=== PATIENT | male | born 1970 | race Caucasian/White ===

== ENCOUNTER 2022-10-05 10:42 | Emergency (ER) | payer BC, SELFPAY ==
[2022-10-05] VITALS (12 sets, daily range): BP systolic 131–151; BP diastolic 78–91; PULSE 65–75; RESP 16; TEMP 36.3–36.7; O2SAT 97–99; BMI 34.0
--- NOTE | 2022-10-05 10:42 | ECG_ITS ---
APPROVED REPORT Exam: Resting ECG HR:71 bpm ECG Measurements Heart Rate 71 AXES OK 160 P 57 QRSd 92 QRS 4 QT 358 T -3 QTc 381 Conclusion SINUS RHYTHM Isolated Q in III O/w NORMAL ECG UNCONFIRMED REPORT Electronically signed by : David Cormier MD 10/05/2022 17:34:06
--- NOTE | 2022-10-05 10:52 | XR_ITS ---
FINAL REPORT CLINICAL HISTORY: CHEST PAIN FINDINGS: SINGLE-VIEW CHEST The heart size is normal. The mediastinum is normal. The lungs are clear. There is no pneumothorax. IMPRESSION: No acute cardiopulmonary process. Reviewed, Interpreted and Dictated by Andres Ac MD Transcribed by Angelina Winn Authenticated and [facility]
--- NOTE | 2022-10-05 11:01 | HMH.EDGENADL ---
Discharge Plan Disposition Patient Disposition: Home, Self-Care Prescriptions Prescriptions: No Action pantoprazole 40 mg tablet,delayed release (DR/EC) 40 mg PO POSTTR isosorbide mononitrate 30 mg tablet extended release 24 hr 30 mg PO DAILY spironolactone 25 mg tablet 25 mg PO HS gemfibrozil 600 mg tablet 600 mg PO BID labetalol 300 mg tablet 300 mg PO BID Label Comments: TAKE 1 TABLET BY MOUTH TWICE DAILY. lisinopril 40 mg tablet 40 mg PO DAILY aspirin 81 mg Capsule 81 mg PO DAILY Referrals Follow up/Referrals: Provider,Referral, MD [Primary Care Provider] - See instructions Activity Restrictions/Add. Instructions Additional Instructions/Restrictions: Please follow-up outpatient with cardiology as instructed and return to the emergency department any worsening symptoms. 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 Roosevelt [facility]iz[facility] presenting today with chest pain. This started less than an hour prior to arrival lasted for about 20 minutes was substernal chest pressure with some diaphoresis radiating to his left shoulder spontaneously resolved. He had 81 mg of aspirin prior to arrival was given 3 additional 81 mg tablets of aspirin prior to my assessment. He is currently asymptomatic. 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 He states 5 years ago he had his most recent cath and coronary CTA at which point he was told he had microvascular disease. He has not had a heart cath or stress test since that time. No fevers chills or other associated symptoms today. Related Data Home Medications Medication Instructions Recorded Confirmed aspirin 81 mg capsule 81 mg PO DAILY . 10/05/22 10/05/22 gemfibrozil 600 mg tablet 600 mg PO BID . 10/05/22 10/05/22 isosorbide mononitrate 30 mg 30 mg PO DAILY . 10/05/22 10/05/22 tablet,extended release 24 hr labetalol 300 mg tablet 300 mg PO BID . 10/05/22 10/05/22 lisinopril 40 mg tablet 40 mg PO DAILY . 10/05/22 10/05/22 pantoprazole 40 mg tablet,delayed 40 mg PO POSTTR Acid reflux 10/05/22 10/05/22 release spironolactone 25 mg tablet 25 mg PO HS . 10/05/22 10/05/22 Allergies Allergy/AdvReac Type Severity Reaction Status Date / Time azathioprine [From Imuran] Allergy Verified 10/05/22 10:52 [facility] Disclaimer: The information contained in this section may have been updated after the patient was seen, as this information can be updated by other users. Social History Smoking Status: Never smoker alcohol intake: never current occupational status: other Travel in the last 8 weeks: None ROS Obtained: Yes All systems reviewed & no additional complaints except as documented Physical Exam General General appearance: alert Respiratory Respiratory exam: Present normal lung sounds bilaterally; Absent respiratory distress Cardiovascular Cardiovascular exam: Present regular rate; Absent tachycardia Neurological Exam Neurological exam: Present alert and oriented X3 Medical Decision Making Navjot Inquiry Pt receiving controlled substance: No Vital Signs: 10/05/22 10:45 10/05/22 11:03 10/05/22 11:00 Temperature 97.4 F L Temperature Source Oral Pulse Rate 72 70 Pulse Rate [Right] 72 Respiratory Rate 16 Blood Pressure 139/88 Blood Pressure [Right Arm] 145/90 H Blood Pressure Mean 105 Blood Pressure Mean [Right Arm] 108 Blood Pressure Source [Right Arm] Automatic Cuff Blood Pressure Position [Right Arm] Sitting 02 Sat by Pulse Oximetry 98 97 Oxygen Delivery Method Room Air Room Air 10/05/22 11:30 10/05/22 12:00
[2022-10-05 11:04] LABS: Basophils % 0.7 % (0.1-2.0); Eosinophils # 0.2 K/mm3 (0.0-0.4); Eosinophils % 4.1 % (0.1-12.0); Hematocrit 42.4 % (42.0-52.0); Hemoglobin 13.7 g/dL (14.1-18.0); Lymphocytes # 2.4 K/mm3 (0.7-4.5); Lymphocytes % 49.6 % (10-50); Mean Corpuscular HGB Conc 32.4 g/dL (31.8-35.4); Mean Corpuscular Hemoglobin 28.7 pg (27.0-31.2); Mean Corpuscular Volume 88.6 fl (80-94); Mean Platelet Volume 8.8 fl (7.4-10.4); Monocytes # 0.3 K/mm3 (0.1-1.0); Monocytes % 5.7 % (1.7-9.3); Neutrophils # 1.9 K/mm3 (1.8-7.8); Neutrophils % 39.9 % (37.0-80.0); Platelet Count 248 K/mm3 (142-424); Red Blood Count 4.79 M/mm3 (4.60-6.20); Red Cell Distribution Width 13.3 % (11.5-17.5); White Blood Count 4.8 K/mm3 (4.8-10.8)
[2022-10-05 11:06] LABS: Blood Urea Nitrogen 13 mg/dl (9-20); Calcium 8.9 mg/dl (8.4-10.2); Carbon Dioxide 27 mmol/L (22.0-30.0); Chloride 102 mmol/L (98-107); Creatinine Clearance Estimated 152 mL/min (50-200); Estimated Glomerular Filt Rate 102 ml/min (>60); GFR (African American) 123 ML/MIN (>60); Glucose 143 mg/dl (74-100); Sodium 140 mmol/L (136-145)
--- NOTE | 2022-10-05 11:09 | PC.NURSE ---
Report given to JUAN Bryant Pt updated on POC and that cardiac workup started. Pt had no new needs at this time.
[2022-10-05 11:20] LABS: Troponin I < 0.01 ng/ml (0.00-0.034)
--- NOTE | 2022-10-05 11:27 | PC.NURSE ---
Updated patient on lab results and provided remote to TV. Pt had no other needs at this time
[2022-10-05 11:28] LABS: D-Dimer 0.69 ug/mL (0.0-0.5)
--- NOTE | 2022-10-05 12:09 | PC.NURSE ---
CHECKED ON PT NO COMPLAINTS AT THIS TIME, TAP JOAQUIN AT BS
[2022-10-05 14:40] LABS: Troponin I 0.02 ng/ml (0.00-0.034)
--- NOTE | 2022-10-05 15:18 | PC.NURSE ---
NOTHING NEEDED AT THIS TIME, TAP NUÑEZ AT BS
== END 2022-10-05 15:55 | disposition home or self-care (01) ==
PROVIDERS: Emergency Provider Student in an Organized Health Care Education/Training Program
DX: R07.9 Chest pain, unspecified (principal); M25.512 Pain in left shoulder; I51.89 Other ill-defined heart diseases
CPT/HCPCS: 36415; 71045; 80048; 84484; 85025; 85378; 93005; 99285

== ENCOUNTER 2022-12-18 20:23 | Emergency (ER) | payer BC, SELFPAY ==
[2022-12-18] VITALS (7 sets, daily range): BP systolic 135–171; BP diastolic 87–106; PULSE 66–72; RESP 16–22; TEMP 36.8–37; O2SAT 96–99; BMI 32.2
--- NOTE | 2022-12-18 20:29 | ECG_ITS ---
APPROVED REPORT Exam: Resting ECG HR:70 bpm ECG Measurements Heart Rate 70 AXES HI 153 P 60 QRSd 83 QRS 8 QT 352 T 23 QTc 372 Conclusion SINUS RHYTHM NORMAL ECG UNCONFIRMED REPORT Electronically signed by : David Cormier MD 12/19/2022 13:59:44
--- NOTE | 2022-12-18 20:36 | XR_ITS ---
PROCEDURE INFORMATION: Exam: XR Chest Exam date and time: 12/18/2022 8:40 PM Age: 52 years old Clinical indication: Pain; Chest pressure; Additional info: Chest pain TECHNIQUE: Imaging protocol: Radiologic exam of the chest. Views: 1 view. COMPARISON: CR XR CHEST PORTABLE 10/05/2022 11:10 AM FINDINGS: Tubes, catheters and devices: There are surgical clips projecting over the left neck Lungs: Unremarkable. No consolidation. Pleural spaces: Unremarkable. No pleural effusion. No pneumothorax. Heart/Mediastinum: Unremarkable. No cardiomegaly. Bones/joints: Unremarkable. IMPRESSION: No acute findings.
--- NOTE | 2022-12-18 20:37 | HMH.EDGENADL ---
Discharge Plan Disposition Patient Disposition: Home, Self-Care Condition: Good Prescriptions Prescriptions: No Action pantoprazole 40 mg tablet,delayed release (DR/EC) 40 mg PO POSTTR isosorbide mononitrate 30 mg tablet extended release 24 hr 30 mg PO DAILY spironolactone 25 mg tablet 25 mg PO HS gemfibrozil 600 mg tablet 600 mg PO BID labetalol 300 mg tablet 300 mg PO BID Patient Comments: TAKE 1 TABLET BY MOUTH TWICE DAILY. lisinopril 40 mg tablet 40 mg PO DAILY aspirin 81 mg Capsule 81 mg PO DAILY Referrals Follow up/Referrals: Star Foley MD [Referring] - See instructions Clinical Impressions Clinical Impression: Chest pain Qualifiers: Chest pain type: precordial pain Qualified Code(s): R07.2 - Precordial pain Discharge ED Provider: Bjorn Wylie Adult HPI General Chief complaint: Chest Pain Stated complaint: CP Time Seen by Provider: 12/18/22 20:37 Mode of Arrival: Ambulatory Source of Information: Patient Limitations: No Limitations Description of Symptoms (Recalled from ER Triage Doc. by RN): Pt presents with intermittent chest pain that has been present over the past week that he has been treating with Nitro. Tonight he developed pain with radiating pain into left arm associated with nausea. Pt has hx of microvascular disease. History of Present Illness HPI narrative: Patient presents for evaluation of intermittent chest pain associated with hypertension which was taken at home, systolics approximately 170s to 180s, previous therapies include nitroglycerin with improvement of symptoms. No palpitations. Pain is sharp substernal and occasionally radiates to left arm, associated nausea. Patient does describe recent travel by plane, no personal or family history of DVT or PE. No pleuritic component, no hemoptysis, no unilateral leg pain or leg swelling, no active chemotherapy or history of immobilization. Patient has had similar symptoms before associated with hypertension. Related Data Home Medications Medication Instructions Recorded Confirmed aspirin 81 mg capsule 81 mg PO DAILY . 10/05/22 10/05/22 gemfibrozil 600 mg tablet 600 mg PO BID . 10/05/22 10/05/22 isosorbide mononitrate 30 mg 30 mg PO DAILY . 10/05/22 10/05/22 tablet,extended release 24 hr labetalol 300 mg tablet 300 mg PO BID . 10/05/22 10/05/22 lisinopril 40 mg tablet 40 mg PO DAILY . 10/05/22 10/05/22 pantoprazole 40 mg tablet,delayed 40 mg PO POSTTR Acid reflux 10/05/22 10/05/22 release spironolactone 25 mg tablet 25 mg PO HS . 10/05/22 10/05/22 Allergies Allergy/AdvReac Type Severity Reaction Status Date / Time azathioprine [From Imuran] Allergy Verified 10/05/22 10:52 [facility] Disclaimer: The information contained in this section may have been updated after the patient was seen, as this information can be updated by other users. Social History (Updated 10/05/22 @ 15:19 by Quincy Maldonado MD) Smoking Status: Never smoker alcohol intake: never current occupational status: other Travel in the last 8 weeks: None ROS Obtained: Yes Systems reviewed as appropriate & no additional complaints except as documented Physical Exam General General appearance: alert and in no apparent distress Head Head exam: atraumatic and normocephalic Eye Eye exam: Present normal appearance Neck Neck exam: Present normal inspection Chest Chest inspection: Present normal inspection and symmetric chest wall rise Respiratory Respiratory exam: Present normal lung sounds bilaterally; Absent respiratory distress Cardiovascular Cardiovascular exam: Present regular rate and normal rhythm Abdominal Exam Abdominal exam: Present soft Neurological Exam Neurological exam: Present alert and oriented X3 Psychiatric Psychiatric exam: Present normal affect and normal mood Skin Skin exam: Present warm and dry Medical Decision Making Medical Records Medical record
[2022-12-18 20:43] LABS: Basophils % 0.4 % (0.1-2.0); Eosinophils # 0.1 K/mm3 (0.0-0.4); Eosinophils % 1.9 % (0.1-12.0); Hematocrit 41.8 % (42.0-52.0); Hemoglobin 13.8 g/dL (14.1-18.0); Lymphocytes # 2.9 K/mm3 (0.7-4.5); Lymphocytes % 45.8 % (10-50); Mean Corpuscular HGB Conc 33.1 g/dL (31.8-35.4); Mean Corpuscular Hemoglobin 28.6 pg (27.0-31.2); Mean Corpuscular Volume 86.5 fl (80-94); Mean Platelet Volume 8.7 fl (7.4-10.4); Monocytes # 0.4 K/mm3 (0.1-1.0); Monocytes % 6.9 % (1.7-9.3); Neutrophils # 2.8 K/mm3 (1.8-7.8); Platelet Count 281 K/mm3 (142-424); Red Blood Count 4.84 M/mm3 (4.60-6.20); Red Cell Distribution Width 12.6 % (11.5-17.5); White Blood Count 6.2 K/mm3 (4.8-10.8)
[2022-12-18 20:50] LABS: Alanine Aminotransferase 47 U/L (12-78); Albumin/Globulin Ratio 1.5 (1.1-1.8); Alkaline Phosphatase 108 U/L (38-126); Anion Gap 13.3 mEq/L (5-15); Aspartate Amino Transferase 47 U/L (17-59); Bilirubin,Total 1.2 mg/dl (0.2-1.3); Blood Urea Nitrogen 14 mg/dl (9-20); Carbon Dioxide 28 mmol/L (22.0-30.0); Chloride 105 mmol/L (98-107); Creatinine Clearance Estimated 105 mL/min (50-200); Estimated Glomerular Filt Rate 71 ml/min (>60); GFR (African American) 85 ML/MIN (>60); Globulin 3.3 g/dL (1.3-3.2); Glucose 105 mg/dl (74-100); Potassium 4.3 mmoL/L (3.5-5.1); Sodium 142 mmol/L (136-145); Total Protein,Serum 8.3 g/dl (6.3-8.2)
[2022-12-18 21:02] LABS: Troponin I < 0.01 ng/ml (0.00-0.034)
--- NOTE | 2022-12-18 21:17 | PC.NURSE ---
Laceration to forhead cleansed with soap and water, lac tray at bedside, dr yee aware
== END 2022-12-18 22:06 | disposition home or self-care (01) ==
PROVIDERS: Emergency Provider Emergency Medicine; PCP Internal Medicine
DX: R07.2 Precordial pain (principal); M79.602 Pain in left arm; R11.0 Nausea; I10 Essential (primary) hypertension
CPT/HCPCS: 71045; 80053; 84484; 85025; 93005; 99285

== ENCOUNTER 2024-03-29 17:37 | Outpatient (CLI) | payer BC, SELFPAY ==
[2024-03-29 19:04] LABS: Free T4 (Free Thyroxine) 1.24 ng/dl (0.78-2.19)
[2024-03-29 19:17] LABS: Thyroid Stimulating Hormone 1.74 uIU/mL (0.465-4.68)
[2024-03-31 07:27] LABS: Triiodothyronine (T3) Free 3.2 pg/mL (2.0-4.4)
== END 2024-03-29 23:59 | disposition home or self-care (01) ==
LOC: LAB 17:41
PROVIDERS: Visit Provider Chiropractor
DX: E03.9 Hypothyroidism, unspecified (principal)
CPT/HCPCS: 36415; 84439; 84443; 84481

== ENCOUNTER 2025-04-16 22:41 | Emergency (ER) | payer OTHER, BC, SELFPAY ==
--- OUTSIDE RECORDS SUMMARY | 2025-03-11 14:40 | XMS_ITS | Encounter Summary ---
Author Organization Healthcare Address [address] [id number] Care Team Providers Care Integrated Circuits Inspector Name Role Phone Darren Garay MD Primary Care Provider [phone] Reason for Referral * Consultation (Routine) - Authorized Specialty Diagnoses / Procedures Referred By Yumiko stark Referred To Contact Diagnoses Essential hypertension Jenna Frias MD [address] [facility] [address] [place] [address] Phone: tel: fax: Referral ID Status Reason Start Date Expiration Date V isits Requested Visits Authorized [id number] Authorized 03/11/2025 09/10/2026 1 1 Reason for Visit * Reason Comments Follow-up * Consultation (Routine) - Closed Specialty Diagnoses / Procedures Referred By Yumiko stark Referred To Contact Nephrology Diagnoses Hypertensive emergency Dawn Gatica MD [address] [place] [address] Phone: tel: fax: [facility] [place] Nephrology, Bone & Mineral Metabolism [address] [facility], [address] [place] [address] Phone: tel: fax: Referral ID Status Reason Start Date Expiration Date V isits Requested Visits Authorized [id number] Closed Specialty Services Required 01/02/2025 07/04/2026 1 1 Encounter Details Date Type Department Care Team ([facility] Contact Info) Description 03/11/2025 2:40 PM EST Office Visit [facility]eral Metabolism [address] [facility], [address] [place] [address] Jenna Frias MD [address] [place] [address] Essential hypertension (Primary Dx) Social History Tobacco Use Types Packs/Day Years Used Date Smoking Tobacco: Never Smokeless Tobacco: Never Tobacco Cessation:Counseling Given: No Alcohol Use Standard Drinks/Week Comments Yes 0 (1 standard drink = 0.6 oz pure alcohol) Alcoholic Drinks/day: Rarely consumes alcohol CAGE ASSESSMENT Answer Date Recorded Cage unable to access Not on file 01/02/2025 Maximum number of drinks you had on a given occasion in the last month? 1 drink 01/02/2025 How many alcoholic Beverages do you typically drink in a week? 0 - 7 per week 01/02/2025 Have you ever felt you should CUT down on your d rinking? 0 01/02/2025 Have you been ANNOYED by peo ple criticizing your drinking? 0 01/02/2025 Have you felt GUILTY about your drinking? 0 01/02/2025 Have you had a drink first t denis in the morning (EYE-VOLUNTEER SERVICES ASSISTANT) to steady your nerves or to get rid of a hangover? 0 01/02/2025 CAGE Questionnaire Score 0 025 Sex and Gender Information Value Date Recorded Sex Assigned at Not on file Legal Sex Male 7:45 PM EDT Gender Identity Not on file Sexual Orientation Not on file documented as of this encounter Last Filed Vital Signs Vital Sign Reading Time Taken Comments Blood Pressure 118/77 03/11/2025 2:55 PM EST first BP in left arm, not accurate loose cuff Pulse - - Temperature 36.9 C (98.4 F) 03/11/2025 2:29 PM EST Respiratory Rate - - Oxygen Saturation - - Inhaled Oxygen Concentration - - Weight 93.5 kg (206 lb 2.1 oz) 03/11/2025 2:29 PM EST Height 170.2 cm (5' 7 ) 03/11/2025 2:29 PM EST Body Mass Index 32.28 03/11/2025 2:29 PM EST documented in this encounter Miscellaneous Notes * Patient Instructions - Jenna Frias MD - 03/11/2025 2:40 PM EST Stop spironolactone. Can consider initating terazosin. If Bps remain above 140/90 mmHg, begin nifedipine. * Progress Notes - Jenna Frias MD - 03/11/2025 2:40 PM EST SUBJECTIVE Ephraim Galicia presents as a new patient today with/for Follow-up. HISTORY OF PRESENT ILLNESS HPI Mr. Galicia is a 54 year old male with history of Crohn's disease on adalimumab, HTN, TIA who presents for evaluation of HTN. Has history of HTN. Diagnosed in April 2009. Notes that his Bps have been elevated of late. His Bps stabilized between 2018 until about 2 months ago. Noted that his father was sick and dying at the time of the change in blood pressures. On labetalol 600 mg BID, lisinopril 40 mg daily, spironolactone 50 mg daily, isosorbide 30 mg BID. Notes recent uptitration of labetalol from 300 mg BID to 600 mg BID by his hotel supplies salesperson Dr. Harmon and increased spironolactone from 25 mg to 50 mg daily. He has microvascular heart disease. He was having some chest tightness, pressure. They did 2 CTAs and everything came back normal. He was cathed at and noted that this was small vessel disease. He ended up on Imdur. 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 He kept having chest pain. He noted that his BP would be elevated, he would have pain radiating down his arm. He took nitroglycerin and did well. He was having esophageal spasms. He was failing his Crohn's regimen. Now that it is under control, he hasn't had alot of chest pain. He has had to increase his Imdur. Takes Qunol--beet. His DBPs wer in the 90s despite meds. He is also taking hawthorn. Notes that he gets dermatitis with statins. With imuran, he was in the ICU with tachycardia. Patient noted that he had sweats a few weeks ago with SBPs in the 170s. Noted that this happened twice. He was hypertensive and tachycardic. On the second occurrence, he was at the [employer] game and he hasissues witih sweating. Noted issues with Bps 175. He has been higher that 225 mmHg and his vision was impacted. He followed up with an ER visit. He notes that it has been random: he had gone through this for years. It happened around when his dad . His dad December 03. He went to a GI appt 12/02. He takes his meds inthe morning. He took his BP and his SBP was 160s. Notes that he had an instance with BP of 225 mmHg. He took a sublingual nitroglycerin and checked into the ER. Denies eating a lot of salt in his diet. Denies eating black licorice. Has sleep apnea and is compliant with CPAP. Takes tylenol, ibuprofen PRN. Takes benadryl. Pmx HTN GERD TIA Crohn's Disease Hypothyroidism Gastroparesis Shx Left thyroid lobectomy Pilonidal cyst drainage. Moon teeth Family Hx HTN present, but notes his is particularly resistant. Social Hx No history of tobacco, illicit substance use Occasional alcohol use--once, maybe twice monthly if he eats pizza/bolivian food, he may have a beer Past Medical History[1] Family History[2] Surgical History[3] Social History Tobacco Use Smoking status: Never Smokeless tobacco: Never Substance Use Topics Alcohol use: Yes Comment: Alcoholic Drinks/day: Rarely consumes alcohol Current Medications[4] Allergies[5] All medications have been reviewed today. REVIEW OF SYSTEMS Review of Systems CONSTITUTIONAL: Denies fevers, denies night sweats, denies chills. Has occasional sweats EYES: Denies double vision, +Blurry vision EARS, NOSE, MOUTH, THROAT: Denies nasal congestion, denies sore throat, denies tinnitus RESPIRATORY: Denies cough, denies shortness of breath CARDIOVASCULAR: Denies chest pain, denies palpitations GASTROINTESTINAL: Denies nausea, denies vomiting, denies diarrhea, denies constipation MUSCULOSKELETAL: Denies joint swelling, denies myalgias GENITOURINARY: Denies hematuria, denies dysuria, denies foamy urine, denies urinary retention INTEGUMENTARY: Denies rashes, denies itchiness HEMATOLOGICAL/LYMPHATIC: Denies easy bruising, denies lymph node swelling ENDOCRINE: Denies hot/cold intolerance, denies polydipsia, denies polyuria ALLERGIC/IMMUNOLOGICAL: Denies anaphylaxis, denies immune deficiencies/ NEUROLOGICAL: Denies headaches, denies paresthesias PSYCHIATRIC: Denies depression, denies anxiety OBJECTIVE Vitals: 03/11/25 1429 BP: (!) 142/90 Temp: 36.9 ??C (98.4 ??F) PHYSICAL EXAMINATION Physical Exam GENERAL: No acute distress. Generally well appearing. HEENT: Head is normocephalic, atraumatic. Eyes without scleral icterus. Mouth with moist mucus membranes HEART: Heart has regular rate and rhythm with normal S1 and S2. No appreciable murmurs, gallops, rubs LUNGS: Lungs clear to auscultation bilaterally. No increased work of breathing. EXTREMITIES: No cyanosis. No clubbing, No edema in bilateral lower extremities. DERMATOLOGICAL: Skin is warm and dry and well perfused. No rashes noted. NEUROLOGICAL: Alert. Answering questions, following commands. PSYCHIATRIC: Euthymic mood and affect. LAB RESULTS CBC Lab Results Component Value Date/Time WBC 6.53 01/02/2025 12:03 PM HGB 13.7 01/02/2025 12:03 PM HCT 39.3 (L) 01/02/2025 12:03 PM [ RFP Lab Results Component Value Date/Time NA 138 01/02/2025 12:03 PM K 4.5 01/02/2025 12:03 PM CL 102 01/02/2025 12:03 PM BUN 12 01/02/2025 12:03 PM CA 10.0 02/16/2020 06:27 PM MG 2.2 02/16/2020 06:27 PM PHOS 3.1 02/16/2020 06:27 PM UA @IPLABRCNT@[ Prealbumin No results found for: PREALBUMIN Vitamin D No components found for: VITD ASSESSMENT/PLAN Assessment & Plan Essential hypertension Problem List Items Addressed This Visit None Mr. Galicia is a 54 year old male with history of Crohn's disease on adalimumab, HTN, TIA who presents for evaluation of HTN. #HTN, possibly resistant HTN given number of medications though not on diuretic - Bps controlled in clinic. Currently taking labetalol 600 mg BID, lisinopril 40 mg daily, spironolactone 50 mg daily, isosorbide 30 mg BID. He is on 3 medications at good doses. Discussed secondary workup. - Underwent workup for resistant HTN: - plasma metanephrines within normal ranges. - PRA 1.52, aldosterone 15.5. He was believed to be on spironolactone while having labs drawn. - Labs 12/2024 without evidence of polycythemia. - Labs 12/2024 without evidence of renal disease. - Underwent CTA 12/2024 without thoracic aortic aneurysm, abdominal aortic aneurysm. No evidence of stenosis in renal arteries. - Renal duplex without evidence of stenosis. - Discussed potentially repeating PRA, aldosterone, but would like to do so off spironolactone. Will hold spironolactone. Ordered nifedipine 30 mg daily if Bps should increase > 140/90 mmHg. Patient has script for terazosin. Noted that this should be ok to take. - Will have follow-up for BP check. #Sleep apnea - Uses CPAP #Diffuse hepatic steatosis - Noted on CTA 12/2024 #Crohn's Disease [1] Past Medical History: Diagnosis Date Essential (primary) hypertension Hypertension Gastro-esophageal reflux disease without esophagitis Acid reflux Malignant neoplasm of thyroid gland (CMS/HCC) Thyroid cancer Personal history of malignant neoplasm of thyroid History of malignant neoplasm of thyroid Personal history of other diseases of the circulatory system History of hypertension Personal history of other diseases of the digestive system History of Crohn's disease Personal history of other diseases of the digestive system History of gastroesophageal reflux (GERD) Personal history of other specified conditions History of tachycardia Personal history of transient ischemic attack (TIA), and cerebral infarction without residual deficits History of stroke Personal history of transient ischemic attack (TIA), and cerebral infarction without residual deficits History of TIAs [2] Family History Problem Relation Name Age of Onset Colon cancer Mother Stroke Mother Diabetes Mother Hypertension Mother Hypertension Father Hypertension Sister Ulcerative colitis Mother [3] Past Surgical History: Procedure Laterality Date COLONOSCOPY N/A Colonoscopy from [facility] ORAL SURGERY N/A Oral Surgery from [facility] PILONIDAL CYST DRAINAGE N/A Pilonidal Cyst Resection from [facility] THYROID LOBECTOMY N/A Lobectomy, thyroid from [facility] THYROIDECTOMY, PARTIAL N/A hemithyroidectomy from [facility] [4] Current Outpatient Medications Medication Sig Dispense Refill adalimumab (Humira) 40 MG/0.8ML Prefilled Syringe Kit subcutaneous injection Inject 0.8 mL under the skin 1 time. ASPIRIN 81 MG chewable tablet Chew 1 tablet. cholecalciferol (Vitamin D-3) 50 MCG (2000 UT) capsule Take 1 capsule by mouth. Coenzyme W33-Jexdyoi E (Qunol Ultra CoQ10) 100-150 MG-UNIT capsule Take 1,180 mcg/day by mouth. Fluticasone Propionate, Inhal, 50 MCG/ACT aerosol powder Inhale 50 mcg/day. gemfibrozil (Lopid) 600 MG tablet Take 1 tablet by mouth 2 times a day before meals. Morrice Kim 550 MG capsule Take 550 mg by mouth. isosorbide dinitrate (Isordil) 30 MG tablet Take 1 tablet by mouth 4 times a day. latanoprost (Xalatan) 0.005 % ophthalmic solution 1 drop nightly. levothyroxine (Tirosint) 88 MCG capsule Take 1 capsule by mouth daily before breakfast. loratadine-pseudoephedrine ER (Claritin-D 12-hour) 5-120 MG 12 hr tablet Take 10 tablets by mouth 2times a day. Do not crush, chew, or split. metoclopramide (Reglan) 5 MG/5ML solution Take 5 mL by mouth 4 times a day before meals and nightly. Multiple Vitamins-Minerals (Multivitamin Adults 50+) tablet 1 (one) time each day at the same time. pantoprazole (Protonix) 40 MG EC tablet Take 1 tablet by mouth daily before breakfast. Do not crush, chew, or split. Pediatric Multivitamins-Fl (Multivitamin/Fluoride) 0.25 MG chewable tablet Chew. spironolactone (Aldactone) 25 MG tablet Take 1 tablet by mouth. No current facility-administered medications for this visit. [5] Allergies Allergen Reactions Imuran [Azathioprine] Palpitations and Fever Statins Dermatitis documented in this encounter Plan of Treatment Upcoming Encounters Date Type Department Care Team (Late st Contact Info) Description 06/11/2025 9:40 AM EST Office Visit [facility]rology, [facility] Metabolism [address] [facility], [address] [place] [address] Jenna Frias MD [address] [address] Scheduled Referrals Name Type Priority Associated Diagnoses Orde r Schedule Follow Up Nephrology Outpatient Referral Routine Essential hypertension Expected: 05/11/2025 (Approximate), Expires: 04/10/2026 documented as of this encounter Visit Diagnoses Diagnosis Essential hypertension- Primary Unspecified essential hypertension documented in this encounter Additional Health Concerns Assessment Noted Time A fall risk assessment has been complete d for the patient 03/11/2025 2:51 PM EST A Body Mass Index follow-up plan has been documented for the patient 03/21/2025 6:07 PM EST documented as of this encounter Care Teams Integrated Circuits Inspector Relationship Specialty Start Date End Date Darren Garay MD [address] [place] [id number] PCP - General 01/02/25 documented as of this encounter
--- OUTSIDE RECORDS SUMMARY | 2025-04-16 22:47 | XMS_ITS | Patient Health Record ---
Author Organization [facility] Address [address] [facility] [address] [place] [address] Care Team Providers Care Hand Packager Name Role Phone Fritz Steve [phone] Reason For Referral No Information Medications Medication SIG (Take, Route, Frequency, Duration) Notes Start Date End Date Status Pentasa Orally 1000mg qid *Pick strength -form from [employer] for eRX* Active Lisinopril 40 MG 1 tablet Orally bid Active amLODIPine Besylate 10 MG 1 tablet Orally Once a day Active Labetalol HCl 100 MG 1 tablet Orally Twice a day Active Multivitamin - Orally qd *Pick strength-f orm from [employer] for eRX* Active CoQ-10 1 capsule with a meal Orally 200mg Once a day *Pick strength-form from [employer] for eRX* Active Aspir-81 81 MG 1 tablet Orally Once a day *Reorder from [employer] for eRx and Interaction Alerts* Active Pantoprazole Sodium 40 MG 1 tablet Orally bid Active Problems Problem Type SNOMED Code ICD Code Onset Dates Problem Status W/U Status Risk Notes Problem Labile essential hypertension (479662106) Labile hypertension (R09.89) Active confirmed Plan Of Treatment No Information Insurance Providers Payer Name Payer Address Payer Phone Subscriber Number Group Number Insured Name Patient Relationship to Insured Coverage Start Date Coverage End Date [facility] [address] [place] [phone] [id number] Ephraim Lawton Self - patient is the insured Medical (General) History Medical History History ICD Code Migraine with aura 346.00 Essential hypertension 401.9 Tinnitus 388.30 Stroke 434.91 Surgical History Surgery Date(Month/Year) thyroid cancer surgery 06/2017
--- OUTSIDE RECORDS SUMMARY | 2025-04-16 22:47 | XMS_ITS | Data Portability ---
Author Organization [employer] [facility] Address [address] [facility] [address] [place] [address] Care Team Providers Care International Marketing Intern Name Role Phone RORY HANSON Primary Care Provider Assessment Encounter Date Assessment Date Assessment LastModified by Organization Details LastModified Time 03/22/2022 03/22/2022 good rehab potential return for strengthening YASIR pierre Not available 03/22/2022 15:27:37 05/18/2022 05/18/2022 Resolved, full use, follow-up as needed. gene Not available 05/18/2022 16:42:28 Plan of Treatment Reminders Order Date Submit Date Provider Last Modified By Organization Details Last Modified Time Details Appointments None record ed. Lab None record ed. Referral None record ed. Procedures None record ed. Surgeries None record ed. Imaging None record ed. Medication Orders None record ed. Patient TargetsNo targets recorded. Patient Instructions Encounter Date Encounter Id Patient Instructions Last Modified By Organization Details Last Modified Time 04/20/2022 [id number] Patient is instructed that it is ok to wash the operative hand with soap and water now that the sutures have been removed, but should not soak the hand in any type of water for 24 hours. Lotion is OK to use after 24 hours, but no Neosporin or other ointments. The 5 pound weight limit is still in effect for the next 4 weeks. Massage over the incision will help to prevent excessive, thick scars, or adhesions. The surgical area does not need to be covered, and should not need to use the wrist splint on this side. Continue to do range of motion exercises to maintain or improve motion. The surgical area can have some swelling and soreness for as long as 4 to 6 months after surgery. He will be scheduled for a 4 week follow-up appointment. ga Not available 04/21/2022 15:39:36 Reason for Referral None Reported. Problems Name Problem SNOMED Code Status Onset Date Resolution Date Notes Provider Name and Address Organization Details Recorded Time Migraine with aura 7043284 Active 2014 From Automated Load;Provi silverio: Faustino, Rich;St atus: Active Not Available [facility] 6 09:38:08 Problem Notes None recorded. Procedures Surgical History Date Name Laterality Status Provider Name and Address Organization Details Recorded Time 2 Op Note completed DEBRA MCBRIDE MD [address] [place], [address], [facility] 04/07/2022 10:04:50 2 OT Evaluation - Moderate complexity completed ROSALINE ROJAS JR, OTR/L, CHT [address] [place], [address], [facility] 03/22/2022 15:20:59 2 OT Therapeutic Exercise completed ROSALINE ROJAS JR, OTR/L, CHT [address] [place], [place], [address] [place] [address], [facility] 03/22/2022 15:21:18 2 Op Note completed DEBRA MCBRIDE MD [address] [place], [address], [facility] 03/17/2022 08:46:58 Imaging Results None recorded. Procedure Notes None recorded. Medical Equipment None Reported. Allergies Allergen ID Allergen Name Allergen Category Reaction Reaction Severity Criticality Documentation Date Start Date Code Code System Note Provider Name and Address Organization Details Recorded Time 305871 Imuran medicatio n tachycard ia Not available [facility] 11/22/2021 9 RxNorm Tenisha Rodriguez [facility] 2 15:25:34 Medications Name Sig Start Date Stop Date Status Note LastModified by Organization Details LastModified Time aspirin 325 mg tablet 07/18 /2022 completed Medicati on Descript ion: aspirin; Dosage:1 ; Route:or al; refills: 0 Not Available Not Available Not Available Medrol (Perico) 4 mg tablets in a dose pack Take 1 dose pk by oral route. 11/22 completed Not Available Not Available Not Available aspirin 81 mg tablet,de layed release Take 1 tablet every day by oral route. active Not Available Not Available No t Available tramadol 50 mg tablet TAKE 1 TABL PO Q 4-6 HRS PRN FOR SEVERE POST SURGICAL PAIN 05/18 completed Not Available Not Available Not Available spironola ctone 25 mg tablet Take 1 tablet every day by oral route. active Not Available Not Available No t Available meloxicam 7.5 mg tablet TAKE 1 TABLE PO QD WITH FOOD REGARDLE SS OF PAIN LEVEL FOR 1 WEEK. THEN TAKE 1 TABLET PO QD ONLY PRN FOR PAIN RELIEF THEREAFT ER 05/18 completed Not Available Not Available Not Available pantopraz ole 40 mg tablet,de layed release Take 1 tablet twice a day by oral route. active Not Available Not Available No t Available Neurontin 100 mg capsule TAKE 1 CAPSULE PO QHS FOR 1 WEEK 05/18 completed Not Available Not Available Not Available Imdur 30 mg tablet,ex tended release Take 1 tablet every day by oral route. active Not Available Not Available No t Available lisinopri l 40 mg tablet Take 1 tablet every day by oral route. active Not Available Not Available No t Available sertralin e 05/18 completed Not Available Not Available Not Available labetalol 150mg twice a day active Not Available Not Available No t Available Lotrel active Medicati on Descript ion: amlodipi ne-benaz epril; Dosage:1 ; Route:or al; refills: 0 Not Available Not Available Not Available Bystolic 20 mg tablet 11/22 completed Medicati on Descript ion: nebivolo l; Route:or al; refills: 0 Not Available Not Available Not Available ustekinum ab 90 mg/mL subcutane ous syringe Inject every 2 months by subcutan eous route. active Not Available Not Available No t Available levothyro xine 88 mcg capsule Take 1 capsule every day by oral route. active Not Available Not Available No t Available gemfibroz il 300 mg capsule Take twice a day by oral route. active Not Available Not Available No t Available Vitals Date Recorded Body height Body mass index (BMI) Body weight Provider Name and Address Organization Details Last Updated DateTime 05/18/2022 170.18 cm 32.9 kg/m2 99008.4 g Luz Michael [facility] 05/18/2022 16:33:38 Date Recorded Body height Body mass index (BMI) Body weight Provider Name and Address Organization Details Last Updated DateTime 03/30/2022 170.18 cm 32.9 kg/m2 00453.4 g [facility] 03/30/2022 11:07:25 Date Recorded Body height Body mass index (BMI) Body weight Provider Name and Address Organization Details Last Updated DateTime 04/20/2022 170.18 cm 32.9 kg/m2 55931.4 g [facility] 04/20/2022 14:32:40 Social History Question Answer Notes LastModified by [employer] Details LastModified Time Tobacco Smoking Status [facility]2016 13:15:00 Live Alone Or With Others? With Others Information not available 06/23/2016 Marital Status Informatio n not available 06/23/2016 Sex: Unknown Functional Status Question Answer Note LastModified by [employer] Details LastModified Time What is your level of alcohol consumption? Occasional Information not available 06/23/2016 Mental Status None recorded. Family History Relationship Description Onset Age of this Age Resolved Age Notes LastModified by Organization Details LastModified Time Mother Family history of malignant neoplasm jseehorn Not available 2016 13:11:10 Mother Diabetes mellitus jseehorn Not available 2016 13:14:26 Mother Hypertensive disorder jseehorn Not available 2016 13:14:39 Mother Family history of stroke jseehorn Not available 2016 13:14:53 Medical History Condition Response Included as Review of Systems Y Stroke Y Hypertension Y Past Encounters Encounter ID Performer Location Encounter Start Date Encounter Closed Date Diagnosis/Indication Diagnosis SNOMED-CT Code Diagnosis ICD10 Code Diagnosis IMO Codes Diagnosis Note [id number] RICH OHARA MD [facility] [address] [place] [address] 06/23/2016 13:04:14 06/23/2016 13:51:32 Headache 87302394 R51 The patient is a 46-year-ol d white male who has headache associated with hypertensi on and focal neurologic symptoms [id number] RICH OHARA MD NEUROLOGY [facility] [address] [place] [address] 04/13/2017 13:18:56 04/13/2017 14:22:02 Essential hypertension 37368314 I10 The patient is a 46-year-ol d white male who has difficulty control hypertensi on. Tinnitus 18930067 H93.11 Recent onset tinnitus. [id number] DEBRA MCBRIDE MD [facility] [address] [place] [address] 11/22/2021 15:05:08 11/22/2021 16:04:38 Bilateral carpal tunnel syndrome 5939477781 5069325 G56.03 Worse when he wakes up or rides a motorcycle . Recommend simultaneo us bilateral carpal tunnel release. Risks and benefits of the surgery were discussed including transient worsening of symptoms, possible failure to relieve symptoms, possible nerve injury, possible infection, possible stiffness, and no guarantees . I discussed soreness in the palm of the hand and swelling in the wrist which may last for several months after surgery. [id number] DEBRA MCBRIDE MD [facility]I [facility] [address] [place] [address] 03/02/2022 13:45:46 03/02/2022 14:04:04 Bilateral carpal tunnel syndrome 2936993696 9629105 G56.03 Tenosynovi tis of left radial styloid 9463830611 0835979 M65.4 Had an injection on the right which worked well, injection on the left did not work. Since we are considerin g carpal tunnel release were going to go ahead and do a left carpal tunnel release and release the first dorsal compartmen t simultaneo usly, and then the right carpal tunnel release when he is ready. [id number] DEBRA MCBRIDE MD SURGERY SCHEDULE [address] [place] [address] 03/17/2022 06:56:15 03/17/2022 06:57:10 [id number] ROSALINE ROJAS JR, OTR/L, CHT PHYSICAL THERAPY / HAND TH[facility]APY [facility] [address] [address] 03/22/2022 15:00:38 03/22/2022 16:13:17 Tendinitis of left wrist region 2674629172 7471556 M67.834 [id number] DEBRA MCBRIDE MD [facility] [address] [place] [address] 03/30/2022 11:03:21 03/30/2022 11:26:19 Bilateral carpal tunnel syndrome 5742518633 3480319 G56.03 Recommend right carpal tunnel release, doing well on the left and I told him about the soreness that develops with time and then passes during the postoperat lolita point Tenosynovi tis of right radial styloid 9552871338 7412665 M65.4 Release right first dorsal compartmen t [id number] DEBRA MCBRIDE MD SURGERY SCHEDULE [address] [place] [address] 04/07/2022 08:02:56 04/07/2022 08:03:23 [id number] RUBENS LONG PA-C [facility] [address] [place] [address] 04/20/2022 13:52:42 04/20/2022 14:44:01 Bilateral carpal tunnel syndrome 9103154043 8927486 G56.03 Doing well status post right carpal tunnel release for moderate carpal tunnel syndrome Tenosynovi tis of right radial styloid 6891487985 0452902 M65.4 Doing well status post release right first dorsal compartmen t [id number] DEBRA MCBRIDE MD [facility] [address] [place] [address] 05/18/2022 16:30:26 05/18/2022 16:51:39 Bilateral carpal tunnel syndrome 7352845561 8721515 G56.03 Doing well status post right carpal tunnel release for moderate carpal tunnel syndrome Tenosynovi tis of right radial styloid 3096771324 0317841 M65.4 Doing well status post release right first dorsal compartmen t Health Concerns Section Related Observation LastModified by Organization Detai ls LastModified Time None Recorded Concern Status LastModified by Organization Details LastModified Time None Recorded Advance Directives Directive None Recorded Payers Insurance Date Sequence Insurance Name Policy Number Policy Castellon Covered Member ID Castellon Member ID Guarantor Name 05/26/2022 1 [place] [employer] [place] [place] [employer] [id number] [employer] [id number] Ephraim Jimenez Dale Notes Date Note Type Note Provider Name and Address Organization Details Recorded Time 2 text/html 74-21-6091PAUO CARPAL TUNNEL RELEASE/RELEASE LEFT 1ST DORSAL COMPARTMENTPerformed by MD ROSALINE Guerrero , OTR/L, CHT [address] [place] [address] [place], [address], [facility] 03/22/2022 15:27:53 2 text/html POST OP GLOBAL VISIT DATE OF SURGERY: 42-32-37KGDA POST SURGERY:13 daysSURGERY:Left carpal tunnel releaseRelease left first dorsal compartment INTERVAL HISTORY: PREOP SYMPTOMSBETTER PAIN LEVEL (VAS)0/10 OVERALL ASSESSMENTIMPROVING NEW SYMPTOMS OR QUESTIONS: No n/t. No concerns. Uneventful OTHER RECENT SURGERIES: EMPLOYMENT STATUS: Working DEBRA MCBRIDE MD [address] [place] [address], [address], [facility] 03/30/2022 11:22:10 2 text/html The patient is here for a routine scheduled postoperative follow-up visit status post right carpal tunnel release for moderate carpal tunnel syndrome, right first dorsal compartment release. Patient reports no pain, he is very pleased with his results. POST OP GLOBAL VISIT DATE OF SURGERY: 24-86-46WVMY POST SURGERY:13 daysSURGERY:Right carpal tunnel releaseRelease Right first dorsal compartment INTERVAL HISTORY: PREOP SYMPTOMSBETTER PAIN LEVEL (VAS)0/10 OVERALL ASSESSMENTIMPROVING NEW SYMPTOMS OR QUESTIONS: No n/t. No concerns. 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 Galicia is here for a recheck. He says he feels great. No pain or issues. 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
--- OUTSIDE RECORDS SUMMARY | 2025-04-16 22:48 | XMS_ITS | Clinical Summary ---
Author Organization [facility] Address [address] [place] [address] Care Team Providers Care Python Engineer Name Role Phone Provider, No Known Primary Care Provider Unavail able Allergies Active Allergy Reactions Criticality Noted Date Comments Azathioprine Palpitations Low 02/03/2020 Kiwi Extract 12/09/2016 Medications aspirin 325 MG tablet Take 325 mg by mouth Daily. Active mesalamine (PENTASA) 250 MG CR capsule Take 1,000 mg by mouth Daily. Active pantoprazole (PROTONIX) 20 MG EC tablet Take 20 mg by mouth Daily. Active doxazosin (CARDURA) 4 MG tablet Take 4 mg by mouth Every Night. Active coenzyme Q10 100 MG capsule Take 200 mg by mouth Daily. Active nitroglycerin (NITROSTAT) 0.[address] 1 tablet under the tongue Every 5 (Five) Minutes As Needed for Chest Pain. Take no more than 3 doses in 15 minutes. 30 tablet 12/10/2016 Active Social History Tobacco Use Types Packs/Day Years Used Date Smoking Tobacco: Never Assessed Abuse Screen Answer Date Recorded Feels Unsafe at Home or Work/School no 12/11/2024 Feels Threatened by Someone no 10/2024 Does Anyone Try to Keep You From Having Contact with Others or Doing Things Outside Your Home? no 12/11/2024 Physical Signs of Abuse Present no 12/11/2024 Housing Stability Answer Date Recorded Current Living Arrangements Not on file 02/05 Potentially Unsafe Housing Conditions Not on mis e 02/15/2023 Family and Community Support Answer Vinny e Recorded Help with Day-to-Day Activities Not on file 02/15/2023 Lonely or Isolated Not on file 02/15/2023 Employment Answer Date Recorded Do you want help finding or keeping work or a parrish b? Not on file 02/15/2023 Disabilities Answer Date Recorded Concentrating, Remembering, or Making Decisions Difficulty Not on file 02/15/2023 Doing Errands Independently Difficulty Not on fi le 02/15/2023 Education Answer Date Recorded Help with school or training? Not on file Preferred Language Not on file 02/15/2023 Sex and Gender Information Value Date Recorded Sex Assigned at Not on file Legal Sex Male 11:58 AM EDT Gender Identity Not on file Sexual Orientation Not on file Last Filed Vital Signs Vital Sign Reading Time Taken Comments Blood Pressure 156/92 12/11/2024 7:00 AM EDT Pulse 81 12/11/2024 7:00 AM EDT Temperature 36.9 C (98.4 F) 12/11/2024 6:54 AM EDT Respiratory Rate 20 12/11/2024 6:54 AM EDT Oxygen Saturation 95% 12/11/2024 7:00 AM EDT Inhaled Oxygen Concentration - - Weight 92.1 kg (203 lb) 12/11/2024 6:54 AM EDT Height 170.2 cm (5' 7 ) 12/11/2024 6:54 AM EDT Body Mass Index 31.79 12/11/2024 6:54 AM EDT Plan of Treatment Health Maintenance Due Date Last Done Comments COLOGUARD 2016 COLON CANCER SCREENING 5 JEAN R SIGMOIDOSCOPY 2016 COLONOSCOPY [address] CANCER SCREENING 2016 CT COLONOGRAPHY 2016 FECAL OCCULT BLOOD TEST 2016 FIT Testing (1 year) 2016 ANNUAL PHYSICAL 12/09/2016 HEPATITIS C SCREENING 12/09/2016 INFLUENZA VACCINE 12/06/2024 TDAP/TD VACCINES (2 - Td or Tdap) 12/29/2026 017 ZOSTER VACCINE Completed 08/02/2022, 05/05/2022 Pneumococcal Vaccine 50+ Completed 024, 06/15/2018, 12/29/2016 Insurance [employer] Care Teams Python Engineer Relationship Specialty Start Date End Date Provider, No Known [facility] [place] [address] PCP - General 12/11/24
--- OUTSIDE RECORDS SUMMARY | 2025-04-16 22:48 | XMS_ITS | Patient Health Record ---
Author Organization [facility] . Address [address] [address] Care Team Providers Care Firer Diesel Locomotive Name Role Phone Fritz Steve [phone] Reason For Referral No Information Medications Medication SIG (Take, Route, Frequency, Duration) Notes Start Date End Date Status Multivitamin - Orally qd Activ e CoQ-10 1 capsule with a gonsalo l Orally 200mg Once a day Active amLODIPine Besylate 10 MG 1 tablet Orally Once a day Active Labetalol HCl 100 MG 1 tablet Orally Twi ce a day Active Aspir-81 81 MG 1 tablet Orally Once a day Active Pantoprazole Sodium 40 MG 1 tablet Orally bid Active Pentasa Orally 1000mg qid Ac tive Lisinopril 40 MG 1 tablet Orally bid Active Social History Tobacco Use: Social History Observation Description Date Details (start date - stop date) Never Smoker NA - NA Tobacco Use/Smoking Question Answer Notes Status: nonsmoker Alcohol Screen (Audit-C) Question Answer Notes Did you have a drink containing alcohol in the p ast year? Yes Points 0 Problems Problem Type SNOMED Code ICD Code Onset Dates Problem Status W/U Status Risk Notes Problem Labile essential hypertension (214207177) Labile hypertension (R09.89) Active confirmed Plan Of Treatment No Information Insurance Providers Payer Name Payer Address Payer Phone Subscriber Number Group Number Insured Name Patient Relationship to Insured Coverage Start Date Coverage End Date [employer] [place] [address] [place] [address] [id number] Ephraim Galicia Self - patient is the insured Medical (General) History Medical History History ICD Code Migraine with aura 346.00 Essential hypertension 401.9 Tinnitus 388.30 Stroke 434.91 Surgical History Surgery Date(Month/Year) thyroid cancer surgery 06/2017
--- OUTSIDE RECORDS SUMMARY | 2025-04-16 22:48 | XMS_ITS | Clinical Summary ---
Author Organization [facility] Address [address] [place] [address] [address] [place] [address] Phone Care Team Providers Care Machine Tool Dresser Name Role Phone Harpreet Harmon Unavailable Unavailable Conditions or Problems Problem Name Problem Code Onset Date Status Entry Date Provider Comment Standard Description Annotate Crohn's disease, large and small intestines w/o complication K50.80 (ICD-10-CM ) 08/25 Active 08/25 Vania Montana Crohn's disease of both small and large intestine without complications Fever 224435579 (SNOMED CT) 08/25 Active 08/25 Vania Montana Fever Headache 16665677 (SNOMED CT) 08/25 Active 08/25 Vania Montana Headache Anemia in chronic diseases(docum ent disease) D63.8 (ICD-10-CM ) 08/25 Active 08/25 Vania Montana Anemia in other chronic diseases classified elsewhere Hypocalcemia 0580118 (SNOMED CT) 08/25 Active 08/25 Vania Montana Hypocalcemia Hypoalbuminemi a 040238232 (SNOMED CT) 08/25 Active 08/25 Vania Montana Hypoalbuminemia Obesity due to excess calories E66.09 (ICD-10-CM ) 08/25 Active 08/25 Vania Montana Other obesity due to excess calories Medications Medication Instructions Start Date Stop Date Generic Name ND Provider HUMIRA 40 MG/0.8ML SUBCUTANEOUS PREFILLED SYRINGE KIT inject 80mg subc in two weeks. Continue loading dose phase. Plan for maintaince dose of 40mg subc every 6 weeks ADALIMUMAB [id number] Raffaele Rg MD PENTASA CR-CAPS take 1000mg po QID MESALAMINE CR-CAPS 12590116764 Raffaele Rg MD CO Q-10 300 MG CAPS take 1 cap po daily COENZYME Q10 77364876346 Raffaele Rg MD TRANDATE 300 MG ORAL TABLET take 1 tab po BID LABETALOL HCL 98130399659 Raffaele Rg MD MULTIVITAMIN ADULTS TABS by mouth daily MULTIPLE VITAMINS-MINERA LS 37720161276 Raffaele Rg MD CHEW Q 100 MG ORAL TABLET CHEWABLE by mouth daily COENZYME Q10 06435222725 Raffaele Rg MD CHEW Q 100 MG ORAL TABLET CHEWABLE by mouth daily COENZYME Q10 46456873384 Harpreet K PROTONIX 40 MG PACK by mouth twice daily PANTOPRAZOLE SODIUM 34574130997 Harpreet K MULTIVITAMIN ADULTS TABS by mouth daily MULTIPLE VITAMINS-MINERA LS 62089719457 Harpreet K LISINOPRIL 40 MG TABS by mouth twice daily LISINOPRIL 52061800357 Harpreet K LABETALOL HCL 200 MG TABS by mouth twice daily LABETALOL HCL 21661950026 Harpreet K BUDESONIDE 3 MG CPEP by mouth three times a day BUDESONIDE 30563773467 Harpreet K ASPIRIN 81 MG ORAL TABLET by mouth daily ASPIRIN 24316495440 Harpreet K NORVASC 10 MG TABS by mouth daily AMLODIPINE BESYLATE 26509078950 Harpreet K Medications Administered No information available. Allergies, Adverse Reactions, Alerts Allergy Name Reaction Description Start Date Severity Statu s Provider KIWI Critical Active Raffaele Rg MD Results Date Name Value Unit Range Flag Description Office Visit: 4 MEDS REVIEW Done Documenta tion of current medications (procedure) Plan of Care No information available. Procedures No information available. Vital Signs Date Name Value Unit Description BMI (Body Mass Index) 29.91 kg/m2 Bod y Mass Index (Ratio) Body Temperature 98.1 [degF] temperat ure E&M BP Diastolic 66 mm[Hg] blood pressu re, diastolic BP Systolic 118 mm[Hg] blood pressur e, systolic Heart Rate 72 /min pulse rate Height 67 [in_us] height E&M Respiratory Rate 16 /min respirat ory rate E&M Weight Measured 191 [lb_av] weight E& M Weight Measured 191 [lb_av] weight E& M Immunizations No information available. Advance Directives Directive Description Start Date NO ADVANCED DIRECTIVES AT THIS TIME 2017
--- OUTSIDE RECORDS SUMMARY | 2025-04-16 22:48 | XMS_ITS | Patient Health Record ---
Author Organization [facility] Address [address] [place] [address] Care Team Providers Care Networking Specialist Name Role Phone ID, Primary Primary Care Provider Jasmin Whitney Unavailable [phone] Allergies Allergen (clinical drug ingredient) Drug/Non Drug Allergy documented on EMR Reaction Allergy Type Onset Date Status azathioprine Imuran Unknown Drug Allergy Acti ve sertraline Sertraline Unknown Drug Allergy Activ e Results Component Value Reference Range Notes STI INCREASED RISK PANEL Reviewed date:12/21/2024 03:24:13 PM Interpretation: Performing Lab:[facility] [facility] [address] [place], [id number] Rich Baez M.D.,PhD Notes/Report: Received Date: [id number] 0 CHLAMYDIA TRACHOMATIS RNA, TMA, UROGENITAL Not Detected Not Detected NEISSERIA GONORRHOEAE RNA, TMA, UROGENITAL Not Detected Not Detected TRICHOMONAS VAGINALIS RNA, QL TMA Not Detected Not Detected MYCOPLASMA GENITALIUM, rRNA, TMA Not Detected Not Detected ASSAY DETAILS See Note The analytical performance characteristics of T. vaginalis when testing male samples have been determined by [facility] [place], [place]. The modifications have not been cleared or approved by the FDA. This modification has been validated pursuant to the CLIA regulations and is used for clinical purposes. For additional information, please refer to https://education.ipatter.com.com/faq/JOH923 https://education.ipatter.com.Elastra/faq/ Trichomonastma These links are being provided for informational/ educational purposes only). Reason For Referral No Information Medications Medication SIG (Take, Route, Frequency, Duration) Notes Start Date End Date Status Isosorbide Mononitrate 20 MG 1 tablet Orally Twice a day Active Pantoprazole Sodium 40 MG 1 tablet Orall y Once a day Active Levothyroxine Sodium 88 MCG 1 tablet in the morning on an empty stomach Orally Once a day Active Lisinopril 40 MG 1 tablet Orally Once a day Active Labetalol HCl 300 MG 1 tablet Orally Twi ce a day Active Humira (2 Pen) 80 MG/0.8ML as directed Subcutaneous Active Crestor 10 MG 1 tablet Orally Once a day Active Spironolactone 25 MG 1 tablet Orally Onc e a day Active Social History Tobacco Use: Social History Observation Description Date Details (start date - stop date) Never Smoker NA - NA Tobacco Control (Standard) Question Answer Notes Tobacco use: Nonsmoker Problems Problem Type SNOMED Code ICD Code Onset Dates Problem Status W/U Status Risk Notes Problem Hypertension (95092965) Hypertension (I10) Active confirmed Problem Crohn disease (38908887) Crohn disease (K50.90) Active confirmed Problem Hypothyroid (66255987) Hypothyroid (E03.9) Active confirmed Problem Pure hyperglyceridemia (552920837) High triglycerides (E78.1) Active confirmed Problem Obese class I (finding) (078703517682989) Obesity (BMI 30.0-34.9) (E66.9) Active confirmed Vital Signs Temperature 98.3 degrees Fahrenheit 12/14/2024 Respiratory Rate 16 /min 12/14/2024 Blood pressure diastolic 78 mm Hg 12/14/2024 Height 67 in 12/14/2024 Blood pressure systolic 120 mm Hg 12/14/2024 Weight 208 lbs 12/14/2024 BMI 32.57 kg/m2 12/14/2024 Encounters Encounter Location Date Provider Diagnosis [address] [address] 12/14/2024 Jasmin White High risk sexual behavior Z72.51 Assessments Encounter Date Diagnosis (ICD Code) Assessment Notes Treatment Notes Treatment Clinical Notes Section Notes 12/14/2024 High risk sexual behavior (ICD-10 - Z72.51) Plan Of Treatment Pending Test Test Name Order Date HSV 1/2 IGG, HERPESELECT W/REFL HSV2 INH IBITION 12/14/2024 Insurance Providers Payer Name Payer Address Payer Phone Subscriber Number Group Number Insured Name Patient Relationship to Insured Coverage Start Date Coverage End Date [facility] [address] [place] [address] [phone] [id number] Self - patient is the insured Medical (General) History Medical History History ICD Code Hypertension I10 Crohn disease K50.90 Hypothyroid E03.9 High triglycerides E78.1 Surgical History Surgery Date(Month/Year) thyroid (L) cancer removed Hospitalization History Reason Date(Month/Year) as above
--- OUTSIDE RECORDS SUMMARY | 2025-04-16 22:49 | XMS_ITS | Encounter Summary ---
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 0 01/02/2025 CAGE Questionnaire Score 0 025 Sex and Gender Information Value Date Recorded Sex Assigned at Not on file Legal Sex Male 7:45 PM EDT Gender Identity Not on file Sexual Orientation Not on file documented as of this encounter Plan of Treatment Upcoming Encounters Date Type Department Care Team (Late st Contact Info) Description 06/11/2025 9:40 AM EST Office Visit [facility] Nephrology, Bone & Mineral Metabolism [address], [address] [place] [address] Jenna Frias MD [address] [place] [address] documented as of this encounter Visit Diagnoses Not on filedocumented in this encounter Additional Health Concerns Assessment Noted Time A fall risk assessment has been complete d for the patient 03/11/2025 2:51 PM EST A Body Mass Index follow-up plan has been documented for the patient 03/21/2025 6:07 PM EST documented as of this encounter Care Teams Talent Management Manager Relationship Specialty Start Date End Date Darren Garay MD [address] [place] [address] PCP - General 01/02/25 documented as of this encounter
--- OUTSIDE RECORDS SUMMARY | 2025-04-16 22:49 | XMS_ITS | Encounter Summary ---
Author Organization Healthcare Address [address] [place] [address] Care Team Providers Care Insurance Follow Up Specialist Name Role Phone Darren Garay MD Primary Care Provider [phone] Encounter Details Date Type Department Care Team ([facility] st Contact Info) Description 03/07/2025 Telephone [facility] Nephrology, Bone & Mineral Metabolism 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, [address] [place] [address] Jenna Frias MD [address] [place] [address] documented as of this encounter Visit Diagnoses Not on filedocumented in this encounter Care Teams Insurance Follow Up Specialist Relationship Specialty Start Date End Date Darren Garay MD [address] [place] [address] PCP - General 01/02/25 documented as of this encounter
--- OUTSIDE RECORDS SUMMARY | 2025-04-16 22:49 | XMS_ITS | Clinical Summary ---
Author Organization [facility] Address [address] [place] [address] Care Team Providers Care Fire Protection Fabricator Name Role Phone Darren Garay MD Primary Care Provider [phone] Allergies Active Allergy Reactions Criticality Noted Date Comments Azathioprine Palpitations,Fever Medium 01/02/2025 Statins Dermatitis Low 01/02/2025 Medications ASPIRIN 81 MG chewable tablet Chew 1 tablet. Active Multiple Vitamins-Mineral s (Multivitamin Adults 50+) tablet 1 (one) time each day at the same time. Active pantoprazole (Protonix) 40 MG EC tablet Take 1 tablet by mouth daily before breakfast. Do not crush, chew, or split. Active gemfibrozil (Lopid) 600 MG tablet Take 1 tablet by mouth 2 times a day before meals. Active adalimumab (Humira) 40 MG/0.8ML Prefilled Syringe Kit subcutaneous injection Inject 0.8 mL under the skin 1 time. Active cholecalciferol (Vitamin D-3) 50 MCG (1999 UT) capsule Take 1 capsule by mouth. Active Pediatric Multivitamins-Fl (Multivitamin/Fl uoride) 0.25 MG chewable tablet Chew. Acti ve Coenzyme H66-Cqishec E (Qunol Ultra CoQ10) 100-150 MG-UNIT capsule Take 1,180 mcg/day by mouth. Active Sharmaine Kim 550 MG capsule Take 550 mg by mouth. Active levothyroxine (Tirosint) 88 MCG capsule Take 1 capsule by mouth daily before breakfast. Active Fluticasone Propionate, Inhal, 50 MCG/ACT aerosol powder Inhale 50 mcg/day. Active latanoprost (Xalatan) 0.005 % ophthalmic solution 1 drop nightly. Active metoclopramide (Reglan) 5 MG/5ML solution Take 5 mL by mouth 4 times a day before meals and nightly. Active loratadine-pseud oephedrine ER (Claritin-D 12-hour) 5-120 MG 12 hr tablet Take 10 tablets by mouth 2 times a day. Do not crush, chew, or split. Active NIFEdipine XL (Procardia XL) 30 MG 24 hr tablet Take 1 tablet by mouth daily. Do not crush, chew, or split. 30 tablet 5 03/11/20 25 Active isosorbide mononitrate ER (Imdur) 30 MG 24 hr tablet Take 1 tablet by mouth 2 times a day. 12/12/19 20 Active labetalol (Normodyne) 300 MG tablet Take 2 tablets by mouth 2 times a day. 09/12/19 18 Active terazosin (Hytrin) 2 MG capsule Take 3 capsules by mouth nightly. 03/27/20 25 Active spironolactone (Aldactone) 25 MG tablet Take 1 tablet by mouth. 025 Discontinued isosorbide dinitrate (Isordil) 30 MG tablet Take 1 tablet by mouth 4 times a day. 025 Discontinued(Al ternate therapy) Active Problems No known active problems Encounters Date Type Department Care Team Description 03/11/2025 2:40 PM EST Office Visit [facility] Nephrology, Bone & Mineral Metabolism [address], [address] [place] [address] Jenna Frias MD Essential hypertension (Primary Dx) 03/11/2025 Travel 03/07/2025 Telephone [facility] Nephrology, Bone & Mineral Metabolism [address], [address] [place] [address] Estefany Roth RN from Last 3 Months Family History Medical History Relation Name Comments Hypertension Father Colon cancer Mother Diabetes Mother Hypertension Mother Stroke Mother Ulcerative colitis Mother Hypertension Sister Relation Name Status Comments Father Mother Sister Social History Tobacco Use Types Packs/Day Years [...] drink first 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) to steady your nerves or to get [...] left arm, not accurate loose cuff Pulse 68 01/02/2025 5:11 PM EDT Temperature 36.9 C (98.4 F) 03/11/2025 2:29 PM EST Respiratory Rate 16 01/02/2025 5:11 PM EDT Oxygen Saturation 97% 01/02/2025 5:1 1 PM EDT Inhaled Oxygen Concentration - - Weight 93.5 kg (206 lb 2.1 oz) 03/11/2025 2:29 PM EST Height 170.2 cm (5' 7 ) 03/11/2025 2:29 PM EST Body Mass Index 32.28 03/11/2025 2:29 PM EST Plan of Treatment Upcoming Encounters Date Type Department Care Team (Late st Contact Info) Description 06/11/2025 9:40 AM EST [facility] Mineral Met[facility] [address] [place] [address] Jenna Frias MD [address] [place] [address] Health Maintenance Due Date Last Done Comments [facility]-Depression Screening 1971 [facility]-Infant/Child/Adol SDOH Screenings 1971 [facility]- SDOH Screenings 1989 [facility]-Adult SDOH Screenings 1989 [facility]-Hepatitis B Vaccines (1 of 3 - 19+ 3-dose series) 1990 CT Colonography 2016 Colonoscopy 2016 FIT-DNA 2016 FIT 2016 FOBT 2016 Sigmoidoscopy 2016 [facility]-Colorectal Cancer Screening 2016 [id number] Vaccine (2024- season) 2025 05/05/2022, 01/18/2021, 05/18/2020, Additional history exists [facility]-DTaP,Tdap,and Td Vaccines (2 - Td or Tdap) 12/29/2026 12/29/2016, 04/07/2004 [facility]-Hepatitis A Vaccines Completed 10/09/2018, 03/09 [facility]-Zoster Vaccines Completed 08/02/2022, [facility]-Pneumococcal Vaccine: 50+ Years Completed 04/12/2024, 06/15/2018, 12/29/2016 [facility]-HIV Screening Completed 01/02/2025, 02/16/2020 [facility]-Hepatitis C Screening Completed 01/02/2025 [facility]-Obesity Intervention Completed 03/11/2025 [facility]-Influenza Vaccine Completed 04/01/2025 , 04/03/2024, 02/05/2023, Additional history exists HPV Vaccines Aged Out No longer eligi ble based on patient's age to complete this topic [facility]-HIB Vaccines Aged Out No longer e ligible based on patient's age to complete this topic [facility]-IPV Vaccines Aged Out No longer e ligible based on patient's age to complete this topic [facility]-Rotavirus Vaccines Aged Out No lo nger eligible based on patient's age to complete this topic Procedures Procedure Name Priority Date/Time Associated Diagnosis Comments HEPATITIS C ANTIBODY - ED W/REFLEX TO HCV QUANT PCR STAT 01/02/2025 12:03 PM EDT ED HIV 1/2 ANTIBODY/ANTIGEN SCREEN WITH REFLEX TO HIV I/II DIFFERENTIATION STAT 01/02/2025 12:03 PM EDT from Last 3 Months or Most Recently Relevant to Health Maintenance Results * ED HIV 1/2 Antibody/Antigen Screen w/Reflex to HIV 1/2 Differentiation (01/02/2025 12:03 PM EDT) HIV 1 & 2 Antibody/Antigen Screen Non Reactive Non Reactive 01/02/2025 1:20 PM EDT [facility] Comment:Screening for HIV 1 & 2 antibodies, and P24 antigen is NONREACTIVE. No confirmatory testing is required. Blood Venous blood specimen / Unknown Venipuncture / Unknown 01/02/2025 12:03 PM EDT 01/02/2025 12:32 PM EDT Bob Foster MD LAB BLOOD ORDERABLES Final Res ult Performing Organization Address City/[facility]/ZIP Co de Phone Number [facility] [address] [place] [address] * Hepatitis C Antibody - ED (01/02/2025 12:03 PM EDT) Pathologist [facility] Hepatitis C Antibody Negative Negative 01/02/2025 1:19 PM EDT [facility] Blood Venous blood specimen / Unknown Venipuncture / Unknown 01/02/2025 12:03 PM EDT 01/02/2025 12:35 PM EDT Bob Foster MD LAB BLOOD ORDERABLES Final Res ult [facility] [address] [place] [address] from Last 3 Months or Most Recently Relevant to Health Maintenance Insurance Care Teams Fire Protection Fabricator Relationship Specialty Start Date End Date Darren Garay MD [address] [place] [address] PCP - General 01/02/25
--- NOTE | 2025-04-16 22:51 | ECG_ITS ---
APPROVED REPORT Exam: Resting ECG HR:68 bpm ECG Measurements Heart Rate 68 AXES TX 157 P 62 QRSd 86 QRS 24 QT 361 T 4 QTc 377 Conclusion normal sinus rhythm Normal axis Normal intervals No STEMI Electronically signed by : Basilio Clark, 04/17/2025 23:21:36
[2025-04-16 23:00] VITALS: BP 152/90; PULSE 80; RESP 18; O2SAT 98
[2025-04-16 23:01] VITALS: BP 158/90; PULSE 75; RESP 16; TEMP 36.9; O2SAT 98; BMI 32.5
--- NOTE | 2025-04-16 23:02 | CT_ITS ---
PROCEDURE INFORMATION: Exam: CT Head Without Contrast Exam date and time: 04/16/2025 11:35 PM Age: 54 years old Clinical indication: Other: Word finding difficulty, off balance, resolved TECHNIQUE: Imaging protocol: Computed tomography of the head without contrast. Radiation optimization: All CT scans at this facility use at least one of these dose optimization techniques: automated exposure control; mA and/or kV adjustment per patient size (includes targeted exams where dose is matched to clinical indication); or iterative reconstruction. COMPARISON: No relevant prior studies available. FINDINGS: Brain: Normal. No hemorrhage. Unremarkable white matter. No mass effect. Cerebral ventricles: No ventriculomegaly. Paranasal sinuses: There is mild mucosal thickening of the sinuses. No air-fluid level identified. Mastoid air cells: Visualized mastoid air cells are well aerated. Bones: Unremarkable. No acute fracture. Soft tissues: Unremarkable. IMPRESSION: 1. No acute process, mass, or bleed. 2. Clinical scenario should determine need for further assessment with noncontrast MRI of the brain.
--- NOTE | 2025-04-16 23:02 | CT_ITS ---
PROCEDURE INFORMATION: Exam: CTA Head With Contrast, Arteriography Exam date and time: 04/16/2025 11:37 PM Age: 54 years old Clinical indication: Other: Word finding difficulty, off balance, resolved TECHNIQUE: Imaging protocol: Computed tomographic angiography of the head with contrast. Exam focused on the arteries. 3D rendering (Not supervised by radiologist): MIP and/or 3D reconstructed images were created by the technologist. Radiation optimization: All CT scans at this facility use at least one of these dose optimization techniques: automated exposure control; mA and/or kV adjustment per patient size (includes targeted exams where dose is matched to clinical indication); or iterative reconstruction. Contrast material: ISO; Contrast volume: 80 ml; Contrast route: INTRAVENOUS (IV); COMPARISON: CT HEAD/BRAIN WO CON 04/16/2025 11:35 PM FINDINGS: ANTERIOR CIRCULATION: Right internal carotid artery: Intracranial segment is patent with no significant stenosis. No aneurysm. Right middle cerebral artery: No occlusion or significant stenosis. No aneurysm. Right anterior cerebral artery: No occlusion or significant stenosis. No aneurysm. Left internal carotid artery: Intracranial segment is patent with no significant stenosis. No aneurysm. Left middle cerebral artery: No occlusion or significant stenosis. No aneurysm. Left anterior cerebral artery: No occlusion or significant stenosis. No aneurysm. POSTERIOR CIRCULATION: Right vertebral artery: No occlusion or significant stenosis. No aneurysm. Left vertebral artery: No occlusion or significant stenosis. No aneurysm. Basilar artery: No occlusion or significant stenosis. No aneurysm. Right posterior cerebral artery: No occlusion or significant stenosis. No aneurysm. Left posterior cerebral artery: No occlusion or significant stenosis. No aneurysm. Brain: No definite mass, mass effect, or midline shift. Cerebral ventricles: No ventriculomegaly. Bones/joints: Unremarkable. No acute fracture. Soft tissues: Unremarkable. Thyroid: Left hemithyroidectomy. Right lobe unremarkable. IMPRESSION: 1. No large vessel occlusion, significant stenosis or dissection identified. 2. Left hemithyroidectomy.
--- NOTE | 2025-04-16 23:02 | CT_ITS ---
PROCEDURE INFORMATION: Exam: CTA Neck With Contrast Exam date and time: 04/16/2025 11:37 PM Age: 54 years old Clinical indication: Other: Word finding difficulty, off balance, resolved TECHNIQUE: Imaging protocol: Computed tomographic angiography of the neck with contrast. Exam focused on the cervical segments of the vasculature. 3D rendering (Not supervised by radiologist): MIP and/or 3D reconstructed images were created by the technologist. Radiation optimization: All CT scans at this facility use at least one of these dose optimization techniques: automated exposure control; mA and/or kV adjustment per patient size (includes targeted exams where dose is matched to clinical indication); or iterative reconstruction. Contrast material: ISO; Contrast volume: 80 ml; Contrast route: INTRAVENOUS (IV); COMPARISON: CT HEAD/BRAIN WO CON 04/16/2025 11:35 PM FINDINGS: Right common carotid artery: No stenosis. No dissection or occlusion. Right internal carotid artery: No stenosis of the extracranial segment. No dissection or occlusion. Right external carotid artery: No occlusion or stenosis of the origin. Left common carotid artery: No stenosis. No dissection or occlusion. Left internal carotid artery: No stenosis of the extracranial segment. No dissection or occlusion. Left external carotid artery: No occlusion or stenosis of the origin. Right vertebral artery: No stenosis. No dissection or occlusion. Left vertebral artery: No stenosis. No dissection or occlusion. Soft tissues: Normal. No significant soft tissue swelling. Bones/joints: No acute fracture. IMPRESSION: No hemodynamically significant stenosis, large vessel occlusion or aneurysm is identified. REFERENCES: NASCET CRITERIA. The degree of stenosis in the cervical segment of the internal carotid artery is based on NASCET criteria. Normal is no stenosis. Mild is less than 50% stenosis. Moderate is 50-69% stenosis. Severe is 70% to 99% stenosis. Total occlusion is no detectable patent lumen.
[2025-04-16 23:09] LABS: Hematocrit 37.8 % (42.0-52.0); Hemoglobin 13.0 g/dL (14.1-18.0); Immature Granulocytes % 0.7 %; Mean Corpuscular HGB Conc 34.4 g/dL (31.8-35.4); Mean Corpuscular Hemoglobin 30.2 pg (27.0-31.2); Mean Corpuscular Volume 87.9 fl (80-94); Nucleated Red Blood Cells % 0 %; Platelet Count 255 K/mm3 (142-424); Red Blood Count 4.30 M/mm3 (4.60-6.20); Red Cell Distribution Width-SD 38.7 fL; White Blood Count 5.5 K/mm3 (4.8-10.8)
[2025-04-16 23:13] LABS: Albumin Level 4.7 g/dl (3.5-5.0); Chloride 106 mmol/L (98-107); Potassium 4.2 mmoL/L (3.5-5.1); Sodium 145 mmol/L (136-145)
[2025-04-16 23:16] LABS: Alanine Aminotransferase 33 U/L (12-78); Albumin/Globulin Ratio 1.4 (1.1-1.8); Alkaline Phosphatase 88 U/L (38-126); Anion Gap 16.2 mEq/L (5-15); Aspartate Amino Transferase 35 U/L (17-59); Bilirubin,Total 0.7 mg/dl (0.2-1.3); Blood Urea Nitrogen 17 mg/dl (9-20); Calcium 9.4 mg/dl (8.4-10.2); Carbon Dioxide 27 mmol/L (22.0-30.0); Cholesterol 170 mg/dl (140-200); Creatinine Clearance Estimated 114 mL/min (50-200); Creatinine,Serum 1.00 mg/dl (0.66-1.25); Estimated Glomerular Filt Rate 78 ml/min (>60); GFR (African American) 95 ML/MIN (>60); Globulin 3.3 g/dL (1.3-3.2); Glucose 127 mg/dl (74-100); Total Protein,Serum 8.0 g/dl (6.3-8.2); Triglycerides 378 mg/dl (30-150)
[2025-04-16 23:17] LABS: HDL Cholesterol 31 mg/dl (40-60)
--- NOTE | 2025-04-16 23:20 | HMH.EDGENADL ---
Discharge Plan Disposition Patient Disposition: Xfer Short-Term Hosp Prescriptions Prescriptions: No Action pantoprazole 40 mg tablet,delayed release (DR/EC) 40 mg PO POSTTR isosorbide mononitrate 30 mg tablet extended release 24 hr 30 mg PO DAILY spironolactone 25 mg tablet 25 mg PO HS gemfibrozil 600 mg tablet 600 mg PO BID labetalol 300 mg tablet 300 mg PO BID Patient Comments: TAKE 1 TABLET BY MOUTH TWICE DAILY. lisinopril 40 mg tablet 40 mg PO DAILY aspirin 81 mg Capsule 81 mg PO DAILY Referrals Follow up/Referrals: Provider,Referral, MD [Primary Care Provider, Medical] - See instructions Clinical Impressions Clinical Impression: Episode of generalized weakness, Word finding difficulty, Hypertension Stand Alone Forms Stand Alone Forms: Transfer Record - ED Print Language Print Language: Sami Discharge ED Provider: Basilio Clark Adult HPI General Chief complaint: PAIN Stated complaint: chest pain Time Seen by Provider: 04/16/25 23:01 Mode of Arrival: EMS Source of Information: Patient Description of Symptoms (Recalled from ER Triage Doc. by RN): Pt arrives via EMS with concerns for HTN and an ongoing ache in the left side of his neck which started 2 days ago. Pt states he listened to his neck with stehoscope and heard a brewery. Pt states he is concerned because he also had an episode of dizziness as well as trouble speaking which resolved on its own after a few minutes (1400). Pt was unsure if it was related to his uncontrolled BP. Pt denies any chest pain, SOA, nausea or vomiting. History of Present Illness HPI narrative: 54-year-old male with history of hypertension, TIA presents to the ER with concerns of hypertension, left-sided neck ache. Patient reports 2 days ago he noticed a mild ache in the left side of his neck, he thought he slept on his neck wrong but home medications did not resolve his symptoms. Today he states around 2 PM (9 hours prior to arrival) he was at [employer] with his mother helping her get a vehicle when he became lightheaded and developed word finding difficulty. He was aware of all of the symptoms and they only lasted a few minutes. He did not have any associated headache, chest pain, difficulty breathing, sweating, numbness, tingling, or weakness. He states his symptoms resolved within a few minutes. He states he went home and this evening his blood pressure was high (160s to 170s) so he took his normal nighttime medications. He took a shower because the left side of his neck was still aching. After getting out of the shower he thought he heard a bruit in the left side of his neck using his own stethoscope. He states since that time the ache in the left neck seems to have migrated more posteriorly. He denies any injury or other complaints. He denies swelling or tenderness. He states he no longer hears the bruit with a stethoscope. Patient denies any recent illness or other associated symptoms. 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 He believes symptoms are related to uncontrolled blood pressure, he reports it has been very labile recently and he is being aggressively worked up by his PCP for aldosterone problems as well as pending a urine workup. We discussed the possibility of a Parul and he states he is supposed to collect urine for 24 hours for his PCP. Patient has had no symptoms since 9 hours ago and has an NIH of 0 on arrival. He does not meet criteria for stroke alert. Related Data Home Medications ?Medication ?Instructions ?Recorded ?Confirmed aspirin 81 mg capsule 81 mg PO DAILY . 10/05/22 10/05/22 gemfibrozil 600 mg tablet 600 mg PO BID . 10/05/22 10/05/22 isosorbide mononitrate 30 mg 30 mg PO DAILY . 10/05/22 10/05/22 tablet,extended release 24 hr labetalol 300 mg tablet 300 mg PO BID . 10/05/22 10/05/22 lisinopril 40 mg tablet 40 mg PO DAILY . 10/05/22 10/05/22 pantoprazole 40 mg tablet,delayed 40 mg PO POSTTR Acid reflux 10/05/22 10/05/22 release spironolactone 25 mg tablet 25 mg PO HS . 10/05/22 10/05/22 Allergies Allergy/AdvReac Type Severity Reaction Status Date / Time azathioprine (From Imuran) Allergy Verified 10/05/22 10:52 [facility] Disclaimer: The information contained in this section may have been updated after the patient was seen, as this information can be updated by other users. Social History (Updated 10/05/22 @ 15:19 by Quincy Maldonado MD) Smoking Status: Never smoker alcohol intake: never current occupational status: other Travel in the last 8 weeks?: None Have you lived/traveled outside [place] in past 30 days?: No Contact w/someone who lives/traveled outside US past 30 days?: No Exposure to someone with infectious disease in past 14 days?: No Do you have a fever (greater than 100.4 F or 38 C)?: No Have you tested positive for COVID-19?: No Exposed to someone with COVID-19 in past 14 days?: No Do you have a sore throat?: No Do you have a cough?: No Do you have any weakness?: No Do you have any diarrhea?: No Are you experiencing any unusual bleeding?: No Do you have any muscle aches/pain?: No Do you have any abdominal pain?: No Are you experiencing loss of taste or smell?: No ROS Obtained: Yes Systems reviewed as appropriate & no additional complaints except as documented per HPI Physical Exam General General appearance: alert and in no apparent distress Head Head exam: atraumatic and normocephalic Eye Eye exam: Present PERRL and EOMI; Absent jaundice, conjunctival injection or nystagmus ENT ENT exam: Present mucous membranes moist Neck Neck exam: Present normal inspection, full ROM, trachea midline and other (No mass, no bruit); Absent tenderness Chest Chest inspection: Present symmetric chest wall rise Respiratory Respiratory exam: Present normal lung sounds bilaterally; Absent respiratory distress, wheezes or stridor Cardiovascular Cardiovascular exam: Present regular rate and normal rhythm Abdominal Exam Abdominal exam: Present soft; Absent distention or tenderness Extremities Exam Extremities exam: Present full ROM; Absent edema Neurological Exam Neurological exam: Present alert, oriented X3 and other (NIH 0 on arrival); Absent motor sensory deficit Psychiatric Psychiatric exam: Present normal affect and normal mood Skin Skin exam: Present warm and dry Medical Decision Making Medical Records Medical records reviewed: Yes I reviewed the patient's medical records. Screening: Per USPSTF and CDC recommendations, given the prevalence of disease in our region, it is our hospital?s policy to screen for HIV and viral Hepatitis for all patients aged 18 and over and those with ongoing risk factors. Navjot Inquiry Pt receiving controlled substance: No Vital Signs: 04/16/25 23:00 04/16/25 23:01 04/17/25 00:30 Temperature 98.4 F Temperature Source Oral Pulse Rate 80 Pulse Rate [Right] 75 Respiratory Rate 18 16 27 H Blood Pressure 152/90 H 142/89 H Blood Pressure [Right Arm] 158/90 H Blood Pressure Mean 132 103 Blood Pressure Mean [Right Arm] 112 Blood Pressure Source [Right Arm] Automatic Cuff Blood Pressure Position [Right Arm] Sitting 02 Sat by Pulse Oximetry 98 98 95 Oxygen Delivery Method Room Air 04/17/25 01:00 04/17/25 02:09 Temperature Temperature Source Pulse Rate 70 71 Pulse Rate [Right] Respiratory Rate 16 20 Blood Pressure 155/95 H 145/88 H Blood Pressure [Right Arm] Blood Pressure Mean 115 Blood Pressure Mean [Right Arm] Blood Pressure Source [Right Arm] Blood Pressure Position [Right Arm] 02 Sat by Pulse Oximetry 95 96 Oxygen Delivery Method Room Air Lab Data Lab Results 04/16/25 22:50: WBC 5.5, RBC 4.30 L, Hgb 13.0 L, Hct 37.8 L, MCV 87.9, MCH 30.2, MCHC 34.4, RDW 12.1, Plt Count 255, MPV 11.0 H, Neut % (Auto) 38.3, Lymph % (Auto) 47.6, [place] % (Auto) 10.0 H, Eos % (Auto) 2.9, Baso % (Auto) 0.5, Neut # (Auto) 2.1, Lymph # (Auto) 2.6, [place] # (Auto) 0.6, Eos # (Auto) 0.2, Baso # (Auto) 0.0, PT 10.7, INR 0.96, APTT 24.2, Sodium 145, Potassium 4.2, Chloride 106, Carbon Dioxide 27, Anion Gap 16.2 H, BUN 17, Creatinine 1.00, Estimated Creat Clear 114, Estimated GFR 78, Est GFR ( Amer) 95, Glucose 127 H, Calcium 9.4, Total Bilirubin 0.7, AST 35, ALT 33, Alkaline Phosphatase 88, Troponin I < 0.01, Total Protein 8.0, Albumin 4.7, Globulin 3.3 H, Albumin/Globulin Ratio 1.4, Triglycerides 378 H, Cholesterol 170, LDL Cholesterol Direct 98.89 L, VLDL Cholesterol 76 H, HDL Cholesterol 31 L, Cholesterol/HDL Ratio 5.5 H, Plasma/Serum Alcohol < 10 04/16/25 23:36: Urine Color Yellow, Urine Appearance Clear, Urine pH 6.0, Ur Specific [place] >= 1.030, Urine Protein 2+ A, Urine Glucose (UA) Negative, Urine Ketones Negative, Urine Blood Negative, Urine Nitrate Negative, Urine Bilirubin Negative, Urine Urobilinogen 0.2, Ur Leukocyte Esterase Negative, Urine RBC Occasional, Ur Squamous Epith Cells Occasional 04/16/25 23:38: Urine Opiates Screen Negative, Urine Methadone Screen Negative, Ur Barbituates Screen Negative, Ur Phencyclidine Scrn Negative, Ur Amphetamines Screen Negative, U Benzodiazepines Scrn Negative, Urine Cocaine Screen Negative, U Marijuana (THC) Screen Negative 04/16/25 22:50 04/16/25 22:50 Orders (Tests/Meds): ED MEDICATIONS Generic Name Dose Route Start Last Admin Trade Name Freq PRN Reason Stop Dose Admin Sodium Chloride 10 ml 04/16/25 23:02 Sodium Chloride 0.9% 10ml Flush Syringe IV 05/16/25 23:01 NEEDED PRN Maintain IV Site Discontinued Medications Generic Name Dose Route Start Last Admin Trade Name Freq PRN Reason Stop Dose Admin Iopamidol 80 ml 04/16/25 23:36 04/16/25 23:38 Iopamidol-370 (76%);100ml Bottle IV 04/16/25 23:37 80 ml ONCE ONE Administration Sodium Chloride 50 ml 04/16/25 23:36 04/16/25 23:37 0.9 % Sodium Chloride 50 Ml Vial IV 04/16/25 23:37 50 ml ONCE ONE Administration Sodium Chloride 10 ml 04/16/25 23:36 04/16/25 23:37 Sodium Chloride 0.9% 10ml Syr (Rad Only) IV 04/16/25 23:37 10 ml ONCE ONE Administration ORDERS Category Date Time Status CT angio head Stat Cat Scan 04/16/25 23:[address] angio neck Stat Cat Scan 04/16/25 23:[address] head/brain wo con Stat Cat Scan 04/16/25 23:02 Completed Activated Partial Thrombo Time Stat Lab 04/16/25 22:50 Completed Complete Blood Count Auto Diff Stat Lab 04/16/25 22:50 Completed Comprehensive Metabolic Panel Stat Lab 04/16/25 22:50 Completed Drug Screen,Urine Stat Lab 04/16/25 23:38 Completed Ethyl Alcohol Stat Lab 04/16/25 22:50 Completed Lipid Panel Stat Lab 04/16/25 22:50 Completed Prothrombin Time INR Stat Lab 04/16/25 22:50 Completed Troponin I Stat Lab 04/16/25 22:50 Completed Urinalysis and Microscopic Stat Lab 04/16/25 23:36 Completed HEART Score History (anamnesis): Slightly suspicious ECG: Non-specific disturbance Age: 45-65 years Risk factors: 3 or more risk factors Troponin: </= normal limit HEART Score: 4 Medical Decision Narrative: In summary, this 54-year-old male with comorbidities described in the HPI presents to the emergency department today with concerns of a brief episode of lightheadedness, word finding difficulty 9 hours prior to arrival that only lasted a few minutes associated with recent labile blood pressures and aching in the left side of the neck. On initial evaluation patient is slightly hypertensive but overall hemodynamically stable, afebrile, GCS 15, NIH 0, no peripheral edema, benign cardiopulmonary exam, no bruit, no mass or tenderness in the neck, no evidence of musculoskeletal injury, no other abnormalities appreciated. Differential diagnosis includes but is not limited to hypertensive urgency or emergency, I considered hemorrhagic stroke, ischemic stroke, TIA, patient does not meet criteria for stroke alert since he has no neurologic deficits and last known normal was 9 hours prior to arrival, I considered electrolyte abnormality, dehydration, metabolic derangement, intoxication, among others. Based on these concerns, I ordered hematologic and serum labs, cardiac workup, CT imaging including angiography of the head and neck. ECG personally interpreted demonstrates sinus rhythm, rate 68, normal axis, normal GA and QTc, no STEMI. Patient is asymptomatic at this time I do not believe he requires acute intervention for hypertensive urgency or emergency Labs personally reviewed demonstrate no leukocytosis, slight anemia hemoglobin 13.0 not significantly changed from prior, nonactionable, normal platelets, PT/INR and APTT normal, CMP not acutely actionable, troponin undetectably low less than 0.01 significantly reassuring against cardiac pathology especially given patient's original symptoms were 9 hours prior to arrival and he is asymptomatic at this time with nonischemic ECG. I do not believe serial troponins are indicated at this time. Patient does have hypercholesterolemia, high triglycerides, these are increasing his risk factor for stroke but do not necessarily mean he had a stroke or ischemic brain event. UA negative for findings of infection however there is some proteinuria which could be related to hypertension causing mild kidney damage though BUN and creatinine are normal, EtOH negative CT head personally interpreted demonstrates no acute intracranial abnormality, no bleed, mass, or midline shift. See radiology read for final interpretation. CTA head and neck personally reviewed demonstrate no large vessel occlusion, see radiology read for final interpretations. On reassessment patient remains asymptomatic, feeling well, hemodynamically stable. [facility], I recommended consult for possible transfer to the OR for TIA workup. He is agreeable with this but states that he is able to go home and follow-up with his PCP on 04/17 that he would prefer to do this but if they want to except him as a transfer and get his MRI done for TIA workup he would be agreeable. Awaiting for callback from OR at this time. I received a callback from the OR and spoke with neurologist Dr. Diaz. We reviewed this case including patient's history and risk factors as well as presentation and results. She stated typically this could be followed with outpatient follow-up, however there are outpatient MRIs are at least a month out and given his history she recommended transfer to the OR for more expedient workup and follow-up. She does not recommend any additional intervention in the ER at this time. Patient was accepted for transfer by Dr. Diaz and will go to a [facility] bed. Awaiting a callback with a bed assignment. Patient is agreeable to transfer. I offered the patient the option to go POV versus ambulance since ambulance [place] out of [place], however he states he has no one to transport him and he came by ambulance so he will need to go by ambulance. I believe this is reasonable. Bed was assigned from the OR, report has been called. Patient was reassessed immediately prior to transfer, he remains neurologically intact, GCS 15, protecting his airway, hemodynamically stable, afebrile, well-appearing. He is tolerating oral intake and ambulating independently in the ER. He was transferred in stable condition. Critical Care Critical Care Time Critical Care Time: No
[2025-04-16 23:24] LABS: Activated Partial Thrombo Time 24.2 seconds (22.8-30.6); INR 0.96 (0.9-1.1); Prothrombin Time 10.7 seconds (10.1-12.5)
[2025-04-16 23:31] LABS: Troponin I < 0.01 ng/ml (0.00-0.034)
[2025-04-16] MEDS: 0.9 % SODIUM CHLORIDE 50 ML VIAL IV (23:37)
[2025-04-16] MEDS: SODIUM CHLORIDE 0.9% 10ML SYR (RAD ONLY) 10 ML IV (23:37)
[2025-04-16] MEDS: IOPAMIDOL-370 (76%);100ML BOTTLE 80 ML IV (23:38)
[2025-04-16 23:42] LABS: Microscopic, Urine URINE MICROSCOPIC (MICROSCOPIC)
[2025-04-16 23:43] LABS: Bilirubin,Urine Negative (Negative); Color,Urine YELLOW (Yellow); Glucose,Urine (UA) Negative (Negative); Ketones,Urine Negative (Negative); Leukocyte Esterase,Urine Negative (Negative); PH,Urine 6.0 (5.0-8.5); Protein,Urine 2+ (Negative); Specific Gravity, Urine >= 1.030 (1.005-1.030); Urobilinogen,Urine 0.2 EU/dl (0.2)
[2025-04-16 23:58] LABS: Barbiturates Screen,Urine Negative ng/ml (<200); Benzodiazepines Screen,Urine Negative ng/ml (<200)
[2025-04-16 23:59] LABS: Amphetamine/Metha Screen,Urine Negative ng/ml (<1000)
[2025-04-17] LABS: Methadone Screen,Urine Negative ng/ml (<300)
[2025-04-17 00:01] LABS: Opiate Screen,Urine Negative ng/ml (<300)
[2025-04-17 00:02] LABS: Phencyclidine Screen,Urine Negative ng/ml (<25)
[2025-04-17 00:18] LABS: RBC,Urine Occasional #/hpf (0-3); Squamous Epithelial Cell,Urine Occasional #/hpf (0-5)
--- NOTE | 2025-04-17 00:24 | PC.NURSE ---
called the [facility] for [facility] consult possible transfer, [facility] to call back.
[2025-04-17 00:30] VITALS: BP 142/89; RESP 27; O2SAT 95
[2025-04-17 01:00] VITALS: BP 155/95; PULSE 70; RESP 16; O2SAT 95
[2025-04-17 02:09] VITALS: BP 145/88; PULSE 71; RESP 20; O2SAT 96
--- NOTE | 2025-04-17 02:13 | PC.NURSE ---
Report called [facility]
[2025-04-17 03:29] VITALS: BP 154/98; PULSE 84; RESP 18; TEMP 36.8; O2SAT 98
== END 2025-04-17 03:29 | disposition short-term general hospital (02) ==
PROVIDERS: Emergency Medicine; Emergency Provider Student in an Organized Health Care Education/Training Program
DX: R07.89 Other chest pain (principal); R47.89 Other speech disturbances; M54.2 Cervicalgia; I10 Essential (primary) hypertension; R53.1 Weakness
CPT/HCPCS: 70450; 70496; 70498; 80053; 80061; 80307; 80320; 81001; 84484; 85025; 85610; 85730; 93005; 99285; Q9967